=== PATIENT | female | born 1935 | race Caucasian/White ===

== ENCOUNTER → 2016-12-02 | Outpatient (CLI) | payer MEDICARE ==
[~2016-12-02] MED LIST: BACTRIM DS TABL1 TA1 PO; LEVAQUIN PO; LISINOPRIL-HCTZ1 T14; PHENERGAN25 MG PO; PREVACID PO; SULAR PO; SYNTHROID PO; TRICOR PO; ZOCOR PO
[2016-12-04 10:31] LABS: CALCIUM (PTHINTACT) 9.5 mg/dL (8.6-10.4)
== END | disposition home or self-care (01) ==
LOC: CLAB 16:06
PROVIDERS: Specialist
DX: E83.52 Hypercalcemia (principal)
CPT/HCPCS: 36415; 82310; 83970